=== PATIENT | female | born 1965 | race Caucasian/White ===

== ENCOUNTER 2022-12-17 14:18 | Inpatient (IN) ==
[2022-12-17] MEDS ORDERED: ONDANSETRON INJ 2 MG/ML 2 ML VIAL IV STA (14:37)
[2022-12-17] MEDS ORDERED: FAMOTIDINE 20MG IV PUSH 20 MG/5 ML SYR IV STA (14:37)
[2022-12-17] MEDS ORDERED: ACETAMINOPHEN 1,000 MG/100 ML VIAL IV STA (14:37)
[2022-12-17] MEDS ORDERED: SODIUM CHLORIDE 0.9% 1000ML 2,000 ML IV SCH (14:45)
--- NOTE | 2022-12-17 15:14 | XRay Report ---
XR chest 1V portable HISTORY: Atypical chest pain. Covid positive. COMPARISON: None. FINDINGS: The lungs are clear. Cardiac silhouette is normal in size. No pleural effusions. No pneumot horax. IMPRESSION: No acute process. ACT 112: Negative or not required by law. Electronically signed by: Kevan Terrell M.D. 12/17/2022 3:13 PM
--- NOTE | 2022-12-17 15:28 | Emergency Department Note ---
Impression & Plan COVID-19, Hyponatremia, Hypomagnesemia, Hypokalemia ED Provider Note NAME: ZEYNEP CHANG AGE: 57 SEX: F ARRIVES VIA: Walk-In INFORMANT: Patient ED PROVIDER(S): Percy Noguera MD CHIEF COMPLAINT: Dizziness, fatigue, body aches/burning PLAN: Disposition: Admit MEDICAL DECISION MAKING: The patient is a pleasant 57-year-old woman with a past medical history of h ypertension who presents to the emergency department via walk-in for evaluation of symptoms of generalized fatigue, lightheadedness, generalized body burning sensation, nausea that developed last night and worsened this morning. The patient denies chest pain or shortness of breath. She denies any urinary symptoms. Denies any diarrhea. She reports she does have sick contact with her being diagnosed with COVID-19 in the past week and then admits that she did take a home test this morning for COVID-19 that was positive. She reports she is vaccinated for COVID-19 and has never had COVID-19 in the past. She denies any cough or congestion. On arrival the patient is anxious appearing but no acute distress, afebrile with heart in the 90s and blood pressure 160s/90s in the setting of her discomfort. She appears clinically dry. She has no focal logic deficits. Abdomen is benign. EKG without overt acute ischemia. CXR negative for acute cardiopulmonary process. WBC, Hbg, and platelets within normal limits. Chemistry without metabolic acidosis. Sodium 115, potassium 2.9 and magnesium 1.5 with electrolyte repletion initiated. LFTs unremarkable. HS Troponin wnl. CPK 222, marginally above normal nonspecific. UA without convincing evidence of infection. Patient's COVID-19 PCR was positive. Serum and urine osmolality completed with serum osmolality concentrated and urine osmolality dilated and so likely multifactorial including component of patient's recent report of GI illness with nausea, vomiting, diarrhea last week with poor oral intake and admittedly drinking mostly water to hydrate and in the setting of being on combination lisinopril HCTZ. Patient initially treated with 2 L normal saline given her clinically dry appearance with repeat sodium improving to 121. Given the patient's hyponatremia she agrees with plan for admission. Unclear if patient's COVID-19 PCR reflects acute illness at this time versus her GI illness last week. Case was d/w Dr. New, [facility] hospitalist who will evaluate the patient for admission. Triage Nursing notes reviewed and agree them. Prior/outside medical records reviewed Vital Signs: reviewed Differential diagnosis: Infection, dehydration, metabolic abnormality, hypo/hyperglycemia, electrolyte disturbance, anemia, hypoxia, cardiac sources, intracerebral event, toxicologic, neurologic, as well as other pathologies. ER treatment provided: See below. Diagnostics interpreted by me: ECG: Sinus rhythm first-degree block, 84 bpm, no ectopy, no overt ST ovation dep ression, QTc 451, cures 94. Cardiac Monitoring: An order for continuous cardiac monitoring was placed and demonstrated Sinus rhythm first-degree block, 84 bpm, no ectopy. Laboratory studies: See below Imaging studies: See below Consultation(s): Case was d/w Dr. New [facility] hospitalist who will evaluate the patient for admission. HPI: The patient is a pleasant 57-year-old woman with a past medical history of hypertension who presents emergency department via walk-in for evaluation of symptoms of generalized fatigue, lightheadedness, generalized body burning sensation, nausea that developed last night and worsened this morning. The patient denies chest pain or shortness of breath. She denies any urinary symptoms. Denies any diarrhea. She reports she does have sick contact with her being diagnosed with COVID-19 in the past week and then admits that she did take a home test this morning for COVID-19 that was positive. She reports she is vaccinated for COVID-19 and has never had COVID-19 in the past. She denies any cough or congestion. ROS: See above HPI for pertinent positives & negatives. A total of 10 systems reviewed and were otherwise negative. VITALS:See Below PHYSICAL EXAMINATION: GENERAL: Awake, alert, fatigued-appearing, in no distress HENT: Normocephalic, atraumatic. Oropharynx with dry mucous membranes and otherwise unremarkable. EYES: Normal conjunctiva. Sclera non-icteric. NECK: Supple. No nuchal rigidity. FROM. No JVD. RESPIRATORY: Clear to auscultation. CARDIAC: Regular rate, normal rhythm. Extremities warm and well perfused. Pulses equal. ABDOMEN: Soft, non-distended. No tenderness to palpation. No rebound or guarding. No masses. RECTAL: Deferred. MUSCULOSKELETAL: Chest examination reveals no tenderness. The back is symmetrical on inspection without obvious abnormality. There is no CVA tenderness to palpation. No joint edema. LOWER EXTREMITIES: Calves are equal size bilaterally and non-tender. No edema. No discoloration. NEURO: Normal sensorium. No sensory or motor deficits noted. SKIN: No rash or jaundice noted. ED COURSE: Critical Care: I have personally spent greater than 35 minutes of critical care time in the direct management of this patient. This includes bedside care, interpretation of diagnostic studies, and testing, discussion with consultants, patient, and family members, and other required patient management activities. This 35 minutes is in excess of all separately billable procedures. Percy Noguera MD Past Med/Surg History Medical History Hypertension Surgical History No significant past surgical history Social History Smoking Status: Never smoker Second Hand Exposure: No; Do You Dip or Chew Tobacco: No; Tobacco Cessation Education Requested by Patient: No Hx Alcohol Use: No Hx Substance Use: No Communication Ability: Effective Coremaker Bench Required: No Beliefs That Will Affect Care: None Current Living Situation: Spouse Other Information That Helps Us Care for You: No Feels Safe at Home: Yes Safety Concerns: Feels Safe At This Time Assistive Devices: None Allergies Allergies Allergy/AdvReac Type Severity Reaction Status Date / Time No Known Allergies Allergy Unverified 12/17/22 15:56 Home Meds Home Medications Medication Instructions Recorded Confirmed aspirin 81 mg tablet,delayed 81 mg PO DAILY 12/17/22 12/17/22 release eflornithine 13.9 % topical cream See Rx Instructions .Route .COMPLEX 12/17/22 12/17/22 (Vaniqa) lisinopril 20 1 tab PO DAILY 12/17/22 12/17/22 mg-hydrochlorothiazide 12.5 mg tablet multivitamin 1 tab PO DAILY 12/17/22 12/17/22 Results & Data (ED) Vital Signs Vital Signs - 24 hr 12/17/22 14:22 12/17/22 15:17 12/17/22 15:23 Temperature 36.5 C Temperature Source Temporal Artery Scan Pulse Rate 92 H 88 86 Pulse Rate [Right Finger] Pulse Rate from SpO2 Sensor Pulse Rhythm [Right Finger] Pulse Strength [Right Finger] Respiratory Rate 16 20 Respiratory Effort / Characteristics Non-Labored Respiratory Depth Normal Respiratory Pattern Blood Pressure 166/95 H Blood Pressure [Right Arm] Blood Pressure Mean 118 Blood Pressure Mean [Right Arm] Blood Pressure Position [Right Arm] Pulse Oximetry 99 96 Oxygen Delivery Method Room Air Room Air Sepsis Recent Fever Within 48 Hours No Sepsis New/Unexplained Change in Mental Status No Sepsis Action Taken by Nursing No Action Required 12/17/22 15:20 12/17/22 15:20 12/17/22 15:30 Temperature Temperature Source Pulse Rate 89 Pulse Rate [Right Finger] 87 Pulse Rate from SpO2 Sensor 88 Pulse Rhythm [Right Finger] Regular Pulse Strength [Right Finger] Normal Respiratory Rate 22 18 Respiratory Effort / Characteristics Non-Labored Spontaneous Respiratory Depth Normal Respiratory Pattern Regular Blood Pressure 127/87 Blood Pressure [Right Arm] 127/87 Blood Pressure Mean 100 Blood Pressure Mean [Right Arm] 100 Blood Pressure Position [Right Arm] Lying Pulse Oximetry 99 98 Oxygen Delivery Method Room Air Sepsis Recent Fever Within 48 Hours Sepsis New/Unexplained Change in Mental Status Sepsis Action Taken by Nursing 12/17/22 15:30 12/17/22 15:40 12/17/22 15:50 Temperature Temperature Source Pulse Rate 89 83 79 Pulse Rate [Right Finger] Pulse Rate from SpO2 Sensor 88 83 78 Pulse Rhythm [Right Finger] Pulse Strength [Right Finger] Respiratory Rate 23 19 14 Respiratory Effort / Characteristics Respiratory Depth Respiratory Pattern Blood Pressure Blood Pressure [Right Arm] Blood Pressure Mean Blood Pressure Mean [Right Arm] Blood Pressure Position [Right Arm] Pulse Oximetry 99 98 96 Oxygen Delivery Method Sepsis Recent Fever Within 48 Hours Sepsis New/Unexplained Change in Mental Status Sepsis Action Taken by Nursing 12/17/22 16:00 12/17/22 16:00 12/17/22 16:10 Temperature Temperature Source Pulse Rate 77 76 Pulse Rate [Right Finger] Pulse Rate from SpO2 Sensor 78 77 Pulse Rhythm [Right Finger] Pulse Strength [Right Finger] Respiratory Rate 14 17 Respiratory Effort / Characteristics Respiratory Depth Respiratory Pattern Blood Pressure 129/87 Blood Pressure [Right Arm] Blood Pressure Mean 101 Blood Pressure Mean [Right Arm] Blood Pressure Position [Right Arm] Pulse Oximetry 97 98 Oxygen Delivery Method Sepsis Recent Fever Within 48 Hours Sepsis New/Unexplained Change in Mental Status Sepsis Action Taken by Nursing 12/17/22 16:20 12/17/22 16:30 12/17/22 16:30 Temperature Temperature Source Pulse Rate 77 82 Pulse Rate [Right Finger] Pulse Rate from SpO2 Sensor 77 82 Pulse Rhythm [Right Finger] Pulse Strength [Right Finger] Respiratory Rate 14 15 Respiratory Effort / Characteristics Respiratory Depth Respiratory Pattern Blood Pressure 141/91 H Blood Pressure [Right Arm] Blood Pressure Mean 107 Blood Pressure Mean [Right Arm] Blood Pressure Position [Right Arm] Pulse Oximetry 98 99 Oxygen Delivery Method Sepsis Recent Fever Within 48 Hours Sepsis New/Unexplained Change in Mental Status Sepsis Action Taken by Nursing 12/17/22 16:40 12/17/22 16:50 12/17/22 17:00 Temperature Temperature Source Pulse Rate 89 90 Pulse Rate [Right Finger] Pulse Rate from SpO2 Sensor 90 90 Pulse Rhythm [Right Finger] Pulse Strength [Right Finger] Respiratory Rate 21 21 Respiratory Effort / Characteristics Respiratory Depth Respiratory Pattern Blood Pressure 135/82 Blood Pressure [Right Arm] Blood Pressure Mean 99 Blood Pressure Mean [Right Arm] Blood Pressure Position [Right Arm] Pulse Oximetry 99 100 Oxygen Delivery Method Sepsis Recent Fever Within 48 Hours Sepsis New/Unexplained Change in Mental Status Sepsis Action Taken by Nursing 12/17/22 17:00 12/17/22 17:10 12/17/22 17:20 Temperature Temperature Source Pulse Rate 95 H 98 H 108 H Pulse Rate [Right Finger] Pulse Rate from SpO2 Sensor 93 H 99 H 108 H Pulse Rhythm [Right Finger] Pulse Strength [Right Finger] Respiratory Rate 16 20 22 Respiratory Effort / Characteristics Respiratory Depth Respiratory Pattern Blood Pressure Blood Pressure [Right Arm] Blood Pressure Mean Blood Pressure Mean [Right Arm] Blood Pressure Position [Right Arm] Pulse Oximetry 100 99 98 Oxygen Delivery Method Sepsis Recent Fever Within 48 Hours Sepsis New/Unexplained Change in Mental Status Sepsis Action Taken by Nursing 12/17/22 17:30 12/17/22 17:30 12/17/22 17:40 Temperature Temperature Source Pulse Rate 97 H 99 H Pulse Rate [Right Finger] Pulse Rate from SpO2 Sensor 97 H 99 H Pulse Rhythm [Right Finger] Pulse Strength [Right Finger] Respiratory Rate 18 19 Respiratory Effort / Characteristics Respiratory Depth Respiratory Pattern Blood Pressure 137/85 Blood Pressure [Right Arm] Blood Pressure Mean 102 Blood Pressure Mean [Right Arm] Blood Pressure Position [Right Arm] Pulse Oximetry 97 98 Oxygen Delivery Method Sepsis Recent Fever Within 48 Hours Sepsis New/Unexplained Change in Mental Status Sepsis Action Taken by Nursing 12/17/22 17:53 12/17/22 17:53 12/17/22 18:00 Temperature Temperature Source Pulse Rate 104 H Pulse Rate [Right Finger] Pulse Rate from SpO2 Sensor 98 H Pulse Rhythm [Right Finger] Pulse Strength [Right Finger] Respiratory Rate 19 Respiratory Effort / Characteristics Respiratory Depth Respiratory Pattern Blood Pressure 139/90 125/53 L Blood Pressure [Right Arm] Blood Pressure Mean 106 77 Blood Pressure Mean [Right Arm] Blood Pressure Position [Right Arm] Pulse Oximetry 98 Oxygen Delivery Method Sepsis Recent Fever Within 48 Hours Sepsis New/Unexplained Change in Mental Status Sepsis Action Taken by Nursing 12/17/22 18:00 12/17/22 18:10 12/17/22 18:20 Temperature Temperature Source Pulse Rate 96 H 96 H 95 H Pulse Rate [Right Finger] Pulse Rate from SpO2 Sensor 96 H 97 H 95 H Pulse Rhythm [Right Finger] Pulse Strength [Right Finger] Respiratory Rate 17 21 14 Respiratory Effort / Characteristics Respiratory Depth Respiratory Pattern Blood Pressure Blood Pressure [Right Arm] Blood Pressure Mean Blood Pressure Mean [Right Arm] Blood Pressure Position [Right Arm] Pulse Oximetry 99 98 98 Oxygen Delivery Method Sepsis Recent Fever Within 48 Hours Sepsis New/Unexplained Change in Mental Status Sepsis Action Taken by Nursing Laboratory Data Attestation: I reviewed the patient's lab results. 12/17/22 14:37 12/17/22 17:51 Lab Results 12/17/22 12/17/22 12/17/22 Range/Units 14:37 14:37 14:37 WBC 5.20 (4.8-10.8) K/ul RBC 4.55 (4.20-5.40) M/uL Hgb 13.0 (12.0-16.0) g/dl Hct 35.0 L (37.0-47.0) % MCV 76.9 L (80.0-100.0) fL MCH 28.6 (25.0-34.0) pg MCHC 37.1 H (32.0-36.0) g/dL RDW Std Deviation 33.6 L (36.4-46.3) fL RDW Coeff of Marlena 11.7 (11.5-14.5) % Plt Count 370 (130-400) K/uL MPV 8.7 L (9.4-12.4) fL Immature Gran % (Auto) 1.0 % Neut % (Auto) 72.0 % Lymph % (Auto) 18.3 % [place] % (Auto) 8.7 % Eos % (Auto) 0.0 % Baso % (Auto) 0.0 % Neut # (Auto) 3.75 (1.40-6.50) K/uL Lymph # (Auto) 0.95 L (1.2-3.4) K/uL [place] # (Auto) 0.45 (0.11-0.59) K/uL Eos # (Auto) 0.00 (0-0.50) K/uL Baso # (Auto) 0.00 (0-0.2) K/uL Immature Gran # (Auto) 0.05 (0.01-0.20) K/uL RBC Morphology Unremarkable Sodium 115 L* (136-145) mmol/L Potassium 2.9 L (3.5-5.1) mmol/L Chloride 77 L (98-107) mmol/L Carbon Dioxide 28 (21-32) mmol/L Anion Gap 10 (3-11) BUN 9 (6-23) mg/dl Creatinine 0.57 L (0.6-1.2) mg/dl Est Cr Clr Drug Dosing 93.8 ml/min Est GFR ( Amer) 120.1 ml/min Est GFR (Non-Af Amer) 103.6 ml/min BUN/Creatinine Ratio 15.8 (10-20) Glucose 137 H (70-99(Fasting)) mg/dl Osmolality 335 H (280-300) mOsm/kg Calcium 10.1 (8.6-10.3) mg/dl Magnesium 1.5 L (1.7-2.4) mg/dl Total Bilirubin 0.8 (0.2-1.0) mg/dl AST 29 (13-39) U/L ALT 35 (7-52) U/L Alkaline Phosphatase 80 (34-104) U/L Total Creatine Kinase 222 H (26-192) U/L Troponin I High Sens 4.7 (0-14) pg/ml Total Protein 7.5 (6.0-8.3) gm/dl Albumin 4.6 (3.4-5.0) gm/dl Globulin 2.9 (2.5-4.0) gm/dl Albumin/Globulin Ratio 1.6 (0.9-2) TSH (0.300-4.500) uIu/ml Random Cortisol mcg/dl Urine Color Urine Appearance (Clear) Urine pH (4.5-7.5) Ur Specific [place] (1.000-1.030) Urine Protein (Negative) Urine Glucose (UA) (Negative) Urine Ketones (Negative) Urine Blood (Negative) Urine Nitrite (Negative) Urine Bilirubin (Negative) Urine Urobilinogen (Negative) Ur Leukocyte Esterase (Negative) Urine WBC (Auto) (0-5) /hpf Urine RBC (Auto) (0-4) /hpf U Hyaline Cast (Auto) (0-5) /lpf U Epithel Cells (Auto) (0-5) /lpf Urine Bacteria (Auto) (Negative) Urine Osmolality (500-800) mOsm/kg Ur Random Sodium mmol/L SARS-CoV-2 (PCR) (Negative) 12/17/22 12/17/22 12/17/22 Range/Units 15:15 15:15 15:15 WBC (4.8-10.8) K/ul RBC (4.20-5.40) M/uL Hgb (12.0-16.0) g/dl Hct (37.0-47.0) % MCV (80.0-100.0) fL MCH (25.0-34.0) pg MCHC (32.0-36.0) g/dL RDW Std Deviation (36.4-46.3) fL RDW Coeff of Marlena (11.5-14.5) % Plt Count (130-400) K/uL MPV (9.4-12.4) fL Immature Gran % (Auto) % Neut % (Auto) % Lymph % (Auto) % [place] % (Auto) % Eos % (Auto) % Baso % (Auto) % Neut # (Auto) (1.40-6.50) K/uL Lymph # (Auto) (1.2-3.4) K/uL [place] # (Auto) (0.11-0.59) K/uL Eos # (Auto) (0-0.50) K/uL Baso # (Auto) (0-0.2) K/uL Immature Gran # (Auto) (0.01-0.20) K/uL RBC Morphology Sodium (136-145) mmol/L Potassium (3.5-5.1) mmol/L Chloride (98-107) mmol/L Carbon Dioxide (21-32) mmol/L Anion Gap (3-11) BUN (6-23) mg/dl Creatinine (0.6-1.2) mg/dl Est Cr Clr Drug Dosing ml/min Est GFR ( Amer) ml/min Est GFR (Non-Af Amer) ml/min BUN/Creatinine Ratio (10-20) Glucose (70-99(Fasting)) mg/dl Osmolality (280-300) mOsm/kg Calcium (8.6-10.3) mg/dl Magnesium (1.7-2.4) mg/dl Total Bilirubin (0.2-1.0) mg/dl AST (13-39) U/L ALT (7-52) U/L Alkaline Phosphatase (34-104) U/L Total Creatine Kinase (26-192) U/L Troponin I High Sens (0-14) pg/ml Total Protein (6.0-8.3) gm/dl Albumin (3.4-5.0) gm/dl Globulin (2.5-4.0) gm/dl Albumin/Globulin Ratio (0.9-2) TSH (0.300-4.500) uIu/ml Random Cortisol mcg/dl Urine Color Yellow Urine Appearance Clear (Clear) Urine pH 7.5 (4.5-7.5) Ur Specific [place] 1.006 (1.000-1.030) Urine Protein Negative (Negative) Urine Glucose (UA) Negative (Negative) Urine Ketones 1+ H (Negative) Urine Blood 1+ H (Negative) Urine Nitrite Negative (Negative) Urine Bilirubin Negative (Negative) Urine Urobilinogen Negative (Negative) Ur Leukocyte Esterase Negative (Negative) Urine WBC (Auto) 1-5 (0-5) /hpf Urine RBC (Auto) 5-10 H (0-4) /hpf U Hyaline Cast (Auto) 0 (0-5) /lpf U Epithel Cells (Auto) 10-20 H (0-5) /lpf Urine Bacteria (Auto) Negative (Negative) Urine Osmolality 205 L (500-800) mOsm/kg Ur Random Sodium mmol/L SARS-CoV-2 (PCR) POSITIVE A* (Negative) 12/17/22 12/17/22 12/17/22 Range/Units 15:15 17:51 17:51 WBC (4.8-10.8) K/ul RBC (4.20-5.40) M/uL Hgb (12.0-16.0) g/dl Hct (37.0-47.0) % MCV (80.0-100.0) fL MCH (25.0-34.0) pg MCHC (32.0-36.0) g/dL RDW Std Deviation (36.4-46.3) fL RDW Coeff of Marlena (11.5-14.5) % Plt Count (130-400) K/uL MPV (9.4-12.4) fL Immature Gran % (Auto) % Neut % (Auto) % Lymph % (Auto) % [place] % (Auto) % Eos % (Auto) % Baso % (Auto) % Neut # (Auto) (1.40-6.50) K/uL Lymph # (Auto) (1.2-3.4) K/uL [place] # (Auto) (0.11-0.59) K/uL Eos # (Auto) (0-0.50) K/uL Baso # (Auto) (0-0.2) K/uL Immature Gran # (Auto) (0.01-0.20) K/uL RBC Morphology Sodium 121 L (136-145) mmol/L Potassium 3.3 L (3.5-5.1) mmol/L Chloride 88 L (98-107) mmol/L Carbon Dioxide 25 (21-32) mmol/L Anion Gap 8 (3-11) BUN 7 (6-23) mg/dl Creatinine 0.57 L (0.6-1.2) mg/dl Est Cr Clr Drug Dosing 93.8 ml/min Est GFR ( Amer) 120.1 ml/min Est GFR (Non-Af Amer) 103.6 ml/min BUN/Creatinine Ratio 12.3 (10-20) Glucose 127 H (70-99(Fasting)) mg/dl Osmolality (280-300) mOsm/kg Calcium 9.1 (8.6-10.3) mg/dl Magnesium (1.7-2.4) mg/dl Total Bilirubin (0.2-1.0) mg/dl AST (13-39) U/L ALT (7-52) U/L Alkaline Phosphatase (34-104) U/L Total Creatine Kinase (26-192) U/L Troponin I High Sens (0-14) pg/ml Total Protein (6.0-8.3) gm/dl Albumin (3.4-5.0) gm/dl Globulin (2.5-4.0) gm/dl Albumin/Globulin Ratio (0.9-2) TSH 1.033 (0.300-4.500) uIu/ml Random Cortisol mcg/dl Urine Color Urine Appearance (Clear) Urine pH (4.5-7.5) Ur Specific [place] (1.000-1.030) Urine Protein (Negative) Urine Glucose (UA) (Negative) Urine Ketones (Negative) Urine Blood (Negative) Urine Nitrite (Negative) Urine Bilirubin (Negative) Urine Urobilinogen (Negative) Ur Leukocyte Esterase (Negative) Urine WBC (Auto) (0-5) /hpf Urine RBC (Auto) (0-4) /hpf U Hyaline Cast (Auto) (0-5) /lpf U Epithel Cells (Auto) (0-5) /lpf Urine Bacteria (Auto) (Negative) Urine Osmolality (500-800) mOsm/kg Ur Random Sodium 47 mmol/L SARS-CoV-2 (PCR) (Negative) 12/17/22 Range/Units 17:51 WBC (4.8-10.8) K/ul RBC (4.20-5.40) M/uL Hgb (12.0-16.0) g/dl Hct (37.0-47.0) % MCV (80.0-100.0) fL MCH (25.0-34.0) pg MCHC (32.0-36.0) g/dL RDW Std Deviation (36.4-46.3) fL RDW Coeff of Marlena (11.5-14.5) % Plt Count (130-400) K/uL MPV (9.4-12.4) fL Immature Gran % (Auto) % Neut % (Auto) % Lymph % (Auto) % [place] % (Auto) % Eos % (Auto) % Baso % (Auto) % Neut # (Auto) (1.40-6.50) K/uL Lymph # (Auto) (1.2-3.4) K/uL [place] # (Auto) (0.11-0.59) K/uL Eos # (Auto) (0-0.50) K/uL Baso # (Auto) (0-0.2) K/uL Immature Gran # (Auto) (0.01-0.20) K/uL RBC Morphology Sodium (136-145) mmol/L Potassium (3.5-5.1) mmol/L Chloride (98-107) mmol/L Carbon Dioxide (21-32) mmol/L Anion Gap (3-11) BUN (6-23) mg/dl Creatinine (0.6-1.2) mg/dl Est Cr Clr Drug Dosing ml/min Est GFR ( Amer) ml/min Est GFR (Non-Af Amer) ml/min BUN/Creatinine Ratio (10-20) Glucose (70-99(Fasting)) mg/dl Osmolality (280-300) mOsm/kg Calcium (8.6-10.3) mg/dl Magnesium (1.7-2.4) mg/dl Total Bilirubin (0.2-1.0) mg/dl AST (13-39) U/L ALT (7-52) U/L Alkaline Phosphatase (34-104) U/L Total Creatine Kinase (26-192) U/L Troponin I High Sens (0-14) pg/ml Total Protein (6.0-8.3) gm/dl Albumin (3.4-5.0) gm/dl Globulin (2.5-4.0) gm/dl Albumin/Globulin Ratio (0.9-2) TSH (0.300-4.500) uIu/ml Random Cortisol 11.19 mcg/dl Urine Color Urine Appearance (Clear) Urine pH (4.5-7.5) Ur Specific [place] (1.000-1.030) Urine Protein (Negative) Urine Glucose (UA) (Negative) Urine Ketones (Negative) Urine Blood (Negative) Urine Nitrite (Negative) Urine Bilirubin (Negative) Urine Urobilinogen (Negative) Ur Leukocyte Esterase (Negative) Urine WBC (Auto) (0-5) /hpf Urine RBC (Auto) (0-4) /hpf U Hyaline Cast (Auto) (0-5) /lpf U Epithel Cells (Auto) (0-5) /lpf Urine Bacteria (Auto) (Negative) Urine Osmolality (500-800) mOsm/kg Ur Random Sodium mmol/L SARS-CoV-2 (PCR) (Negative) Administered Medications Dextrose (D5w) 1,000 mls @ 150 mls/hr IV .[id number] DEJUAN Stop: 12/18/22 07:54 Last Admin: 12/18/22 01:13 Dose: 150 mls/hr Documented By: ASM Discontinued Medications Sodium Chloride (Nss 1000ml) 2,000 mls @ 999 mls/hr IV .Q2H1M DEJUAN Stop: 12/17/22 16:45 Last Infusion: 12/17/22 17:45 Dose: 0 mls/hr Documented By: PRODUCTION OPERATIONS MANAGER Admin: 12/17/22 15:45 Dose: 999 mls/hr Documented By: PRODUCTION OPERATIONS MANAGER Acetaminophen (Ofirmev) 1,000 mg in 100 mls @ 400 mls/hr IV NOW STA Stop: 12/17/22 14:51 Last Infusion: 12/17/22 16:31 Dose: 0 mls/hr Documented By: PRODUCTION OPERATIONS MANAGER Admin: 12/17/22 15:55 Dose: 400 mls/hr Documented By: PRODUCTION OPERATIONS MANAGER Famotidine (Pepcid 20mg Iv Push) 20 mg in 5 mls @ 2.5 mls/min IV NOW STA Stop: 12/17/22 14:38 Last Admin: 12/17/22 15:50 Dose: 2.5 mls/min Documented By: PRODUCTION OPERATIONS MANAGER Magnesium Sulfate/Dextrose (Magnesium Sulfate / D5w) 1 gm in 100 mls @ 50 mls/hr IV ONE ONE Stop: 12/17/22 18:25 Last Infusion: 12/17/22 19:00 Dose: 0 mls/hr Documented By: PRODUCTION OPERATIONS MANAGER Admin: 12/17/22 16:58 Dose: 50 mls/hr Documented By: PRODUCTION OPERATIONS MANAGER Desmopressin Acetate 2 mcg/ (Sodium Chloride) 50.5 mls @ 100 mls/hr IV ONE STA Stop: 12/17/22 19:24 Last Infusion: 12/17/22 20:15 Dose: 0 mls/hr Documented By: PRODUCTION OPERATIONS MANAGER Admin: 12/17/22 19:42 Dose: 100 mls/hr Documented By: ARS Dextrose (D5w) 500 mls @ 500 mls/hr IV .Q1H DEJUAN Stop: 12/17/22 23:44 Last Infusion: 12/18/22 00:05 Dose: 0 mls/hr Documented By: Admin: 12/17/22 23:05 Dose: 500 mls/hr Documented By: AYESHA Dextrose (D5w) 500 mls @ 500 mls/hr IV .Q1H DEJUAN Stop: 12/18/22 01:14 Last Infusion: 12/18/22 01:12 Dose: 0 mls/hr Documented By: Admin: 12/17/22 23:56 Dose: 500 mls/hr Documented By: AYESHA Ondansetron HCl (Ondansetron Inj 2 Mg/Ml 2 Ml Vial) 4 mg IV NOW STA Stop: 12/17/22 14:38 Last Admin: 12/17/22 16:07 Dose: 4 mg Documented By: PRODUCTION OPERATIONS MANAGER Potassium Chloride (Potassium Chloride Crtab 20 Meq Tabcr) 40 meq PO NOW STA Stop: 12/17/22 23:09 Last Admin: 12/17/22 23:54 Dose: 40 meq Documented By: AYESHA Imaging Data Radiologist's Impression: Chest X-Ray 12/17/22 14:37 XR chest 1V portable HISTORY: Atypical chest pain. Covid positive. COMPARISON: None. FINDINGS: The lungs are clear. Cardiac silhouette is normal in size. No pleural effusions. No pneumothorax. IMPRESSION: No acute process. ACT 112: Negative or not required by law. Electronically signed by: Kevan Terrell M.D. 12/17/2022 3:13 PM Discharge Plan Visit Data Chief Complaint: Illness Stated Complaint: LIGHTHEADED, MUSCLE PAIN, DRY MOUTH ED Provider: Percy Noguera Discharge Problem: COVID-19, Hyponatremia, Hypomagnesemia, Hypokalemia Patient Disposition: Admitted As Inpatient Discharge Instructions Interventions: ED Discharge Assessment Last Done: 12/17/22 20:15
[2022-12-17 15:44] LABS: Appearance Urine Clear (Clear); Bacteria Urine Automated Negative (Negative); Bilirubin Urine Negative (Negative); Blood Urine 1+ (Negative); Cast Urine Automated 0 /lpf (0-5); Color Urine Yellow; Glucose Urine UA Negative (Negative); Ketones Urine 1+ (Negative); Leukocyte Esterase Urine Negative (Negative); Nitrite Urine Negative (Negative); Protein Urine Negative (Negative); Specific Gravity Urine 1.006 (1.000-1.030); Urobilinogen Urine Negative (Negative); pH Urine 7.5 (4.5-7.5)
[2022-12-17 16:16] LABS: Albumin Globulin Ratio 1.6 (0.9-2); Albumin Level 4.6 gm/dl (3.4-5.0); BUN Creatinine Ratio 15.8 (10-20); Bilirubin,Total 0.8 mg/dl (0.2-1.0); Calcium 10.1 mg/dl (8.6-10.3); Creatinine Clr Calc Pharmacy 93.8 ml/min; Est GFR (African American) 120.1 ml/min; Est GFR (Non-African American) 103.6 ml/min; Globulin 2.9 gm/dl (2.5-4.0); Magnesium 1.5 mg/dl (1.7-2.4); Potassium 2.9 mmol/L (3.5-5.1); Total Protein 7.5 gm/dl (6.0-8.3); Troponin I High Sensitivity 4.7 pg/ml (0-14)
[2022-12-17] MEDS ORDERED: MAGNESIUM SULFATE / D5W 1 GM/100 ML BAG IV ONE (16:26)
[2022-12-17 16:35] LABS: Mean Corpuscular Hemoglobin 28.6 pg (25.0-34.0); Mean Corpuscular Hgb Conc 37.1 g/dL (32.0-36.0); Mean Corpuscular Volume 76.9 fL (80.0-100.0); Mean Platelet Volume 8.7 fL (9.4-12.4); Platelet Count 370 K/uL (130-400); RDW Coefficient of Variation 11.7 % (11.5-14.5); RDW Standard Deviation 33.6 fL (36.4-46.3); Red Blood Count 4.55 M/uL (4.20-5.40)
[2022-12-17 16:36] LABS: Immature Granulocytes # (auto) 0.05 K/uL (0.01-0.20); Lymphocytes # (auto) 0.95 K/uL (1.2-3.4); Lymphocytes % (auto) 18.3 %; Monocytes # (auto) 0.45 K/uL (0.11-0.59); Monocytes % (auto) 8.7 %; Neutrophils # (auto) 3.75 K/uL (1.40-6.50); RBC Morphology Unremarkable
--- NOTE | 2022-12-17 17:31 | History & Physical Report ---
Date of Service December 17, 2022 Assessment & Plan (1) Hyponatremia: Plan: Suspect multifactorial with increased free water use, HCTZ use, possible SIADH ?2/2 COVID Na 115 on admission, currently 121 s/p 2L NSS bolus given in ER with excessive urine output, will start desmopressin clamp 2mcg IV q8h to avoid over- correction, remove once Na > 125 reached with appropriate rate Use D5W or 3% NSS to continue to aim Na increase 6 mmol/L / 24 hours Fluid restrict 1000ml (2) Hypokalemia: Plan: K 2.9 -> 3.3 after Mg sulfate. Will avoid further KCl currently to avoid further correction to Na (3) Hypomagnesemia: Plan: Mg level 1.5, Magnesium sulfate 1g IV given (4) Hypertension: Plan: Hold lisinopril/HCTZ (5) COVID: Plan: Asymptomatic although maybe contributing towards hyponatremia as above COVID isolation precautions Plan VTE Prophylaxis - low risk Diet - regular, free water restrict 1000ml Disposition - admit to PCU History of Present Illness Chief Complaint: Generalized fatigue Primary Care Provider: Orville Dooley MD Rose Bhat is a 57 year old female with hypertension who presents to the ER with generalized fatigue, lightheadedness and myalgias. She reports having a nausea, vomiting illness approximately 1 week ago. She recovered from this but has been drinking more water to keep well hydrated. She reports he had nasal congestion and cough on Monday and tested positive for COVID. Today she woke up lightheaded, fatigue and generalized malaise and just not feeling right around 3am this morning. She took a COVID test which was positive but felt something else must be going on so came to the ER for further evaluation. No fever, chills, respiraotry, gastrointestinal or urinary symptoms. In the ER Na level 115 mmol/L. She was given 2L NSS bolus and referred to medicine for admission and ongoing management of hyponatremia. Allergies Allergy/AdvReac Type Severity Reaction Status Date / Time No Known Allergies Allergy Unverified 12/17/22 15:56 Home Medications Medication Instructions Recorded Confirmed Type aspirin 81 mg tablet,delayed 81 mg PO DAILY 12/17/22 12/17/22 History release eflornithine 13.9 % topical cream See Rx Instructions .Route .COMPLEX 12/17/22 12/17/22 History (Vaniqa) lisinopril 20 1 tab PO DAILY 12/17/22 12/17/22 History mg-hydrochlorothiazide 12.5 mg tablet multivitamin 1 tab PO DAILY 12/17/22 12/17/22 History Past Med/Surg History Medical History Hypertension Surgical History No significant past surgical history Social History Smoking Status: Never smoker Second Hand Exposure: No; Do You Dip or Chew Tobacco: No; Tobacco Cessation Education Requested by Patient: No Hx Alcohol Use: No Hx Substance Use: No Communication Ability: Effective Bunch Trimmer Mold Required: No Beliefs That Will Affect Care: None Current Living Situation: Spouse Other Information That Helps Us Care for You: No Feels Safe at Home: Yes Safety Concerns: Feels Safe At This Time Assistive Devices: None Review of Systems Review of Systems: All systems reviewed & are unremarkable except as noted in HPI & below Physical Exam Constitutional: WD/WN, vitals as above Eyes: PERRL, conjunctivae normal, anicteric sclerae ENMT: external ear and nose normal, oropharynx normal Neck: trachea midline, no thyromegaly Respiratory: normal respiratory effort, lungs clear to auscultation Cardiovascular: RRR, no murmur, no edema Gastrointestinal (Abdomen): normal bowel sounds, soft, nontender, no hepatosplenomegaly Musculoskeletal: no cyanosis or clubbing, extremities motor strength 5/5 Skin: no rashes, warm and dry Neurologic: deep tendon reflexes 2+ bilaterally (knee), moves all extremities and awake; no focal motor deficits and not confused Speech / Cognition: normal speech Coordination: normal [id number] test Psychiatric: A+Ox3, euthymic affect Genitourinary: no CVA tenderness Results & Data Results & Data Vital Signs (Past 12 Hours) Vital Signs Temp Pulse Pulse Resp BP BP Pulse Ox 12/17/22 16:30 82 15 99 12/17/22 16:30 141/91 H 12/17/22 16:20 77 14 98 12/17/22 16:10 76 17 98 12/17/22 16:00 77 14 97 12/17/22 16:00 129/87 12/17/22 15:50 79 14 96 12/17/22 15:40 83 19 98 12/17/22 15:30 89 23 99 12/17/22 15:30 127/87 12/17/22 15:20 89 18 98 12/17/22 15:20 87 22 127/87 99 12/17/22 15:23 86 12/17/22 15:17 88 20 96 12/17/22 14:22 36.5 C 92 H 16 166/95 H 99 O2 Del Method 12/17/22 16:30 12/17/22 16:30 12/17/22 16:20 12/17/22 16:10 12/17/22 16:00 12/17/22 16:00 12/17/22 15:50 12/17/22 15:40 12/17/22 15:30 12/17/22 15:30 12/17/22 15:20 12/17/22 15:20 Room Air 12/17/22 15:23 12/17/22 15:17 Room Air 12/17/22 14:22 Room Air Laboratory Results Abnormal lab results 12/17/22 12/17/22 12/17/22 Range/Units 14:37 14:37 14:37 Hct 35.0 L (37.0-47.0) % MCV 76.9 L (80.0-100.0) fL MCHC 37.1 H (32.0-36.0) g/dL RDW Std Deviation 33.6 L (36.4-46.3) fL MPV 8.7 L (9.4-12.4) fL Lymph # (Auto) 0.95 L (1.2-3.4) K/uL Sodium 115 L* (136-145) mmol/L Potassium 2.9 L (3.5-5.1) mmol/L Chloride 77 L (98-107) mmol/L Creatinine 0.57 L (0.6-1.2) mg/dl Glucose 137 H (70-99(Fasting)) mg/dl Osmolality 335 H (280-300) mOsm/kg Magnesium 1.5 L (1.7-2.4) mg/dl Total Creatine Kinase 222 H (26-192) U/L Urine Ketones (Negative) Urine Blood (Negative) Urine RBC (Auto) (0-4) /hpf U Epithel Cells (Auto) (0-5) /lpf Urine Osmolality (500-800) mOsm/kg SARS-CoV-2 (PCR) (Negative) 12/17/22 12/17/22 12/17/22 Range/Units 15:15 15:15 15:15 Hct (37.0-47.0) % MCV (80.0-100.0) fL MCHC (32.0-36.0) g/dL RDW Std Deviation (36.4-46.3) fL MPV (9.4-12.4) fL Lymph # (Auto) (1.2-3.4) K/uL Sodium (136-145) mmol/L Potassium (3.5-5.1) mmol/L Chloride (98-107) mmol/L Creatinine (0.6-1.2) mg/dl Glucose (70-99(Fasting)) mg/dl Osmolality (280-300) mOsm/kg Magnesium (1.7-2.4) mg/dl Total Creatine Kinase (26-192) U/L Urine Ketones 1+ H (Negative) Urine Blood 1+ H (Negative) Urine RBC (Auto) 5-10 H (0-4) /hpf U Epithel Cells (Auto) 10-20 H (0-5) /lpf Urine Osmolality 205 L (500-800) mOsm/kg SARS-CoV-2 (PCR) POSITIVE A* (Negative) 12/17/22 Range/Units 17:51 Hct (37.0-47.0) % MCV (80.0-100.0) fL MCHC (32.0-36.0) g/dL RDW Std Deviation (36.4-46.3) fL MPV (9.4-12.4) fL Lymph # (Auto) (1.2-3.4) K/uL Sodium 121 L (136-145) mmol/L Potassium 3.3 L (3.5-5.1) mmol/L Chloride 88 L (98-107) mmol/L Creatinine 0.57 L (0.6-1.2) mg/dl Glucose 127 H (70-99(Fasting)) mg/dl Osmolality (280-300) mOsm/kg Magnesium (1.7-2.4) mg/dl Total Creatine Kinase (26-192) U/L Urine Ketones (Negative) Urine Blood (Negative) Urine RBC (Auto) (0-4) /hpf U Epithel Cells (Auto) (0-5) /lpf Urine Osmolality (500-800) mOsm/kg SARS-CoV-2 (PCR) (Negative) Diagnostic Findings XR chest 1V portable HISTORY: Atypical chest pain. Covid positive. COMPARISON: None. FINDINGS: The lungs are clear. Cardiac silhouette is normal in size. No pleural effusions. No pneumothorax. IMPRESSION: No acute process. Medications Administered ER Medications Given: NSS 2L bolus Acetaminophen 1000mg IV Famotidine 20mg IV Ondansetron 4mg IV Magnesium sulfate 1g IV ECG Rate (beats per minute): 84 Rhythm: normal sinus Findings: + 1st degree AV block Comparison ECG Date: no prior available Code Status & VTE Plan Code Status Full VTE Prophylaxis Plan VTE Prophylaxis will be ordered: No Critical Care Time Critical Care Time: Yes (35) PG Care Time/CCT Total # of Minutes Spent Total Time Spent with Patient: Total time spent is greater than 50% in coordination of care (as documented) at patient's floor/unit and/or counseling patient: Critical Care Time: Yes (35) Coding Level of Care Code 97359 INT INP/OBS CARE 3/75MIN Diagnoses Hyponatremia E87.1 Hypokalemia E87.6 Hypomagnesemia E83.42 Hypertension I10 COVID U07.1 Additional Codes Critical Care Time - Critical Care Time: Yes ([id number])
[2022-12-17 18:18] LABS: BUN Creatinine Ratio 12.3 (10-20); Calcium 9.1 mg/dl (8.6-10.3); Creatinine Clr Calc Pharmacy 93.8 ml/min; Est GFR (African American) 120.1 ml/min; Est GFR (Non-African American) 103.6 ml/min; Potassium 3.3 mmol/L (3.5-5.1)
[2022-12-17] MEDS ORDERED: DESMOPRESSIN ACETATE 2 MCG in SODIUM CHLORIDE 0.9% 50 ML IV STA (18:54)
[2022-12-17 21:33] LABS: BUN Creatinine Ratio 9.4 (10-20); Calcium 9.2 mg/dl (8.6-10.3); Creatinine Clr Calc Pharmacy 82.8 ml/min; Est GFR (African American) 115.6 ml/min; Est GFR (Non-African American) 99.8 ml/min
[2022-12-17] MEDS ORDERED: DEXTROSE 5% 500 ML IV SCH (22:45)
[2022-12-17] MEDS ORDERED: DEXTROSE 5% 1,000 ML IV SCH (23:00)
[2022-12-17] MEDS ORDERED: POTASSIUM CHLORIDE CRTAB 20 MEQ TABCR PO STA (23:08)
[2022-12-18] MEDS ORDERED: DEXTROSE 5% 500 ML IV SCH (00:15)
[2022-12-18 00:52] LABS: Calcium 8.2 mg/dl (8.6-10.3); Creatinine Clr Calc Pharmacy 75.7 ml/min; Est GFR (African American) 112.3 ml/min; Est GFR (Non-African American) 96.9 ml/min; Potassium 3.1 mmol/L (3.5-5.1)
[2022-12-18] MEDS ORDERED: DEXTROSE 5% 1,000 ML IV SCH (01:15)
[2022-12-18] MEDS ORDERED: DESMOPRESSIN ACETATE 2 MCG in SODIUM CHLORIDE 0.9% 50 ML IV SCH (04:00)
[2022-12-18] MEDS: ACETAMINOPHEN 325 MG TAB PO PRN (04:05)
[2022-12-18 06:31] LABS: BUN Creatinine Ratio 10.9 (10-20); Calcium 7.9 mg/dl (8.6-10.3); Creatinine Clr Calc Pharmacy 97.4 ml/min; Est GFR (African American) 121.5 ml/min; Est GFR (Non-African American) 104.9 ml/min; Magnesium 1.6 mg/dl (1.7-2.4); Potassium 3.1 mmol/L (3.5-5.1)
[2022-12-18 06:46] LABS: Hemoglobin 11.5 g/dl (12.0-16.0); Mean Corpuscular Hemoglobin 30.3 pg (25.0-34.0); Mean Corpuscular Hgb Conc 38.3 g/dL (32.0-36.0); Mean Corpuscular Volume 78.9 fL (80.0-100.0); Mean Platelet Volume 8.8 fL (9.4-12.4); Platelet Count 345 K/uL (130-400); RDW Coefficient of Variation 11.9 % (11.5-14.5); RDW Standard Deviation 34.2 fL (36.4-46.3)
--- NOTE | 2022-12-18 06:47 | Communication Note ---
Date of Service: December 17, 2022 Na increased to 126 after desmopressin clamp started. Aim Na 118 at this time. Free water deficit 1L. 1L D5W ordered to be given over 2 hours. Repeat Na 1am. Handed over to wardrobe stylist to prescribe D5W (per free water deficit calculations if over correcting or hypertonic saline if under correcting to match rate of 6 mmol/l/24 hours overnight.
[2022-12-18 07:06] LABS: Neutrophils % (manual) 55 %
[2022-12-18 07:10] LABS: ALC (manual) 1.76 K/uL (1.2-3.4); ANC (manual) 2.37 K/uL (1.4-6.5); Lymphocytes # (manual) 1.76 K/uL (1.2-3.4); Lymphocytes % (manual) 41 %; Monocytes # (manual) 0.13 K/uL (0.11-0.59); Monocytes % (manual) 3 %; Neutrophils # (manual) 2.36 K/uL (1.40-6.50)
--- NOTE | 2022-12-18 07:29 | Hospitalist Progress Note ---
Date of Service December 18, 2022 Assessment & Plan (1) Hyponatremia: Plan: Rose Bhat is a 57yo female with PMHx significant for HTN who was admitted to [facility] on 12/17 for hyponatremia and was also found to have COVID-19 - contracted a wk ago. Hyponatremia Hypotonic hyponatremia (initial serum osmolality 335 but down to 246 on re-check this morning), with urine sodium 47 and low urine osmolality of 220. Most likely hypovolemic hyponatremia due to dehydration in context of recent GI illness as well as chronically low fluid intake while on HCTZ. Of note, chronic baseline sodium is unknown although patient reports no previous diagnosis of hyponatremia. - Na initially increased from 115 to 126 after 2L NSS boluses, and patient was thus started on Q8H Desmopressin as well as D5W x1L to correct free water deficit - Na has decreased from 126 to 118 after 1 dose Desmopressin and completion of D5W infusion - overall up 3 mEq in last 18 hours - Will give NSS 500cc bolus now, and will stop Desmopressin - Continue to monitor BMP Q4H Nausea Likely due to hyponatremia, mildly symptomatic at this time. - PRN Zofran ordered Hypokalemia;Hypomagnesemia Likely due to HCTZ in setting of recent GI illness. Replete and trend. HTN Very mildly hypertensive at 145/95 this AM. - Holding HCTZ. Resume lisinopril COVID-19 Positive on admission, but asymptomatic. Contracted a wk ago. May be contributing to hyponatremia. - isolation precautions FEN/GI: regular diet (removed fluid restriction) DVT Prophylaxis: Lovenox Code Status: full code Disposition: PCU (2) Hypokalemia: (3) Hypomagnesemia: (4) Hypertension: (5) COVID: Admission and Anticipated Discharge Date Admission Date: December 17, 2022 Supervising Physician Co-Signing Physician Notes Resident Physician Supervision Note: I independently interviewed and examined the patient and verified the anderson history and physical, reviewed labs and image studies and agree with resident findings and care plan. Subjective Patient reports that she had nausea/vomiting and diarrhea x2 days, starting ~1 week ago and then completely resolving. Then 1 day prior to admission she woke up with upper/lower extremity myalgia, fatigue/weakness and lightheadedness - "didn't feel right". Of note patient's started having URI symptoms and has COVID-19 - symptoms started 4 days ago - but patient is asymptomatic in this regard. Of note patient drinks 32 ounces water per day chronically, infrequently drinks alcohol. Did increase water intake to 64 ounces per day for last several days to help recover from GI illness. Today patient reports she is nauseous but other symptoms that prompted her to go to the ED have resolved. Feels "okay" overall. Review of Systems Review of Systems: All systems reviewed & are unremarkable except as noted in HPI & below Physical Exam Physical Exam: General: A&Ox3. NAD. Cooperative. HEENT: Atraumatic, normocephalic. Pulm: CTAB A&P. -wheezes, -rales, -rhonchi. Symmetrical chest rise. No increase work of breathing. No respiratory distress. Cardiac: RRR, -mrg. Radial pulses intact and symmetrical. Abdominal: soft, non-tender, non-distended, BS x 4 Skin: warm, dry, no rash Results & Data Results & Data Vital Signs (Past 12 Hours) Vital Signs Temp Pulse Pulse Resp BP BP BP 12/17/22 21:56 64 12/17/22 20:29 81 12/18/22 02:44 36.9 C 91 H 18 130/81 12/17/22 23:44 36.7 C 88 18 112/75 12/17/22 21:20 76 0 L 12/17/22 21:10 97 H 19 12/17/22 21:00 89 0 L 12/17/22 20:50 88 5 L 12/17/22 20:42 92 H 13 12/17/22 20:10 89 17 12/17/22 20:00 81 13 12/17/22 19:50 90 15 12/17/22 19:40 86 17 12/17/22 19:30 82 14 12/17/22 19:30 109/70 12/17/22 20:49 36.7 C 98 H 20 134/89 Pulse Ox O2 Del Method 12/17/22 21:56 12/17/22 20:29 12/18/22 02:44 98 Room Air 12/17/22 23:44 98 Room Air 12/17/22 21:20 12/17/22 21:10 12/17/22 21:00 12/17/22 20:50 12/17/22 20:42 12/17/22 20:10 12/17/22 20:00 12/17/22 19:50 12/17/22 19:40 99 12/17/22 19:30 97 12/17/22 19:30 12/17/22 20:49 96 Room Air Resident Activity Tracking Resident Involvement: Resident Care Provided Care Provided: Adult Hospital Medicine
[2022-12-18] MEDS ORDERED: ONDANSETRON INJ 2 MG/ML 2 ML VIAL IV STA (08:09)
[2022-12-18] MEDS ORDERED: ONDANSETRON INJ 2 MG/ML 2 ML VIAL ONE (08:11)
[2022-12-18] MEDS: POTASSIUM CHLORIDE / WTR 10 MEQ/100 ML PLCT IV SCH ×3 (08:15→10:23)
[2022-12-18] MEDS: MAGNESIUM SULFATE / D5W 1 GM/100 ML BAG IV SCH ×2 (08:16→10:25)
[2022-12-18] MEDS: ENOXAPARIN INJ 40 MG/0.4 ML SYR SQ SCH (08:26)
[2022-12-18] MEDS: ASPIRIN 81 MG ECTAB PO SCH (08:26)
[2022-12-18] MEDS ORDERED: ONDANSETRON INJ 2 MG/ML 2 ML VIAL IV PRN (08:37)
[2022-12-18] MEDS ORDERED: PROCHLORPERAZINE 5 MG in SYRINGE 4 ML IV ONE (09:45)
[2022-12-18 09:51] LABS: Calcium 7.9 mg/dl (8.6-10.3); Creatinine Clr Calc Pharmacy 107.1 ml/min; Est GFR (African American) 125.4 ml/min; Est GFR (Non-African American) 108.2 ml/min; Potassium 3.2 mmol/L (3.5-5.1)
[2022-12-18] MEDS ORDERED: SODIUM CHLORIDE 0.9% 1000ML 500 ML IV ONE (10:02)
--- NOTE | 2022-12-18 10:24 | Electrocardiogram Report ---
Test Reason : Blood Pressure : / mmHG Vent. Rate : 084 BPM Atrial Rate : 084 BPM P-R Int : 286 ms QRS Dur : 094 ms QT Int : 382 ms P-R-T Axes : 049 029 021 degrees QTc Int : 451 ms Sinus rhythm with 1st degree A-V block Possible Left atrial enlargement Abnormal ECG No previous ECGs available Confirmed by Bebeto Watt ([id number]) on 12/18/2022 10:24:31 AM Referred By: Confirmed By:Bebeto Watt
[2022-12-18] MEDS ORDERED: POTASSIUM CHLORIDE CRTAB 20 MEQ TABCR PO STA (10:35)
--- NOTE | 2022-12-18 10:41 | Electrocardiogram Report ---
Test Reason : Blood Pressure : / mmHG Vent. Rate : 073 BPM Atrial Rate : 073 BPM P-R Int : 296 ms QRS Dur : 080 ms QT Int : 402 ms P-R-T Axes : 058 050 048 degrees QTc Int : 442 ms Sinus rhythm with 1st degree A-V block Abnormal ECG When compared with ECG of 17-DEC-2022 15:14, (unconfirmed) No significant change was found Confirmed by Bebeto Watt ([id number]) on 12/18/2022 10:41:13 AM Referred By: REFERRED SELF Confirmed By:Bebeto Watt
[2022-12-18] MEDS: lisinopril 20 MG TAB PO SCH (11:40)
[2022-12-18 13:45] LABS: BUN Creatinine Ratio 8.5 (10-20); Creatinine Clr Calc Pharmacy 90.8 ml/min; Est GFR (African American) 118.8 ml/min; Est GFR (Non-African American) 102.5 ml/min; Potassium 3.8 mmol/L (3.5-5.1)
[2022-12-18] MEDS ORDERED: SODIUM CHLORIDE 1 GM TABLET PO ONE (13:50)
[2022-12-18 16:59] LABS: BUN Creatinine Ratio 8.7 (10-20); Calcium 7.8 mg/dl (8.6-10.3); Creatinine Clr Calc Pharmacy 116.5 ml/min; Est GFR (African American) 128.9 ml/min; Est GFR (Non-African American) 111.2 ml/min
[2022-12-18] MEDS ORDERED: STAT IV STA ×2 (17:04→17:18)
[2022-12-18] MEDS ORDERED: SODIUM CHLORIDE 1 GM TABLET PO STA (17:04)
[2022-12-18] MEDS ORDERED: SODIUM CHLORIDE 3 % 50 ML IV ONE (17:04)
[2022-12-18] MEDS ORDERED: SODIUM CHLORIDE 3 % 150 ML IV ONE (17:18)
--- NOTE | 2022-12-18 17:48 | Communication Note ---
Date of Service: December 18, 2022 This morning, patient's sodium had decreased from 126 to 118 after initiation of D5W gtt (1L) and Desmopressin clamp Q8H. D5W and desmopressin was discontinued this morning, and patient was given 1L NSS. Then patient was started on 500cc fluid restricted diet as well as given sodium chloride 1gm tablet. Despite this sodium decreased further from 118 to 114 (was 115 on admission yesterday afternoon). Patient reports that nausea and lightheadedness have started to return. VS are stable and WNL on room air. Patient's exam is stable and unremarkable - A+Ox4, heart RRR w/o m/r/g, lungs CTAB, no LE edema. Suspect multi-factorial hypotonic hyponatremia: GI sodium loss from recent vomiting/diarrhea, excess water intake to compensate for GI illness, and contribution from thiazide diuretic. Currently mildly symptomatic. - spoke with Nephrology (Dr. Kim) - appreciate recs: 200mL infusion of 3% hypertonic saline, with close monitoring of sodium (BMP q2h x2, followed by q4h checks) --> goal increase 8mEq over next 24 hours - continue to hold thiazide diuretic - seizure precautions in place Resident Activity Tracking Resident Involvement: Resident Care Provided Care Provided: Adult Hospital Medicine
[2022-12-18 19:04] LABS: BUN Creatinine Ratio 7.4 (10-20); Creatinine Clr Calc Pharmacy 99.2 ml/min; Est GFR (African American) 122.3 ml/min; Est GFR (Non-African American) 105.5 ml/min; Potassium 4.1 mmol/L (3.5-5.1)
[2022-12-18 22:35] LABS: BUN Creatinine Ratio 6.1 (10-20); Calcium 8.3 mg/dl (8.6-10.3); Creatinine Clr Calc Pharmacy 109.3 ml/min; Est GFR (African American) 126.2 ml/min; Est GFR (Non-African American) 108.9 ml/min
[2022-12-19 01:49] LABS: BUN Creatinine Ratio 5.9 (10-20); Calcium 8.4 mg/dl (8.6-10.3); Est GFR (African American) 124.6 ml/min; Est GFR (Non-African American) 107.5 ml/min; Potassium 3.9 mmol/L (3.5-5.1)
[2022-12-19] MEDS ORDERED: SODIUM CHLORIDE 3 % 50 ML IV ONE (01:52)
[2022-12-19] MEDS ORDERED: STAT IV STA (01:52)
--- NOTE | 2022-12-19 06:45 | Hospitalist Progress Note ---
Date of Service December 19, 2022 Assessment & Plan (1) Hyponatremia: Plan: 57 F with PMHx significant for HTN who was admitted to [facility] on 12/17 for hyponatremia and was also found to have COVID-19 (asymptomatic). Hyponatremia Hypotonic hyponatremia (initial serum osmolality 335 but down to 246 on re-check this morning), with urine sodium 47 and low urine osmolality of 220. Most likely hypovolemic hyponatremia due to dehydration in context of recent GI illness as well as chronically low fluid intake. Less likely SIADH given low urine osmolality, although patient does have asymptomatic COVID-19 and is on Lisinopril-HCTZ which both carry some risk of SIADH. Of note, chronic baseline sodium is unknown although patient reports no previous diagnosis of hyponatremia. -Na initially increased from 115 to 126 after 2L NSS boluses, and patient was thus started on Q8H Desmopressin as well as D5W x1L to correct free water deficit -Na then decreased from to 114 after DDAVP, D5W infusion. -Conferred with nephrology, who recommended 200 mL of 3% hypertonic saline, serial BMP monitoring w/ goal 8 mEq over next 24 hrs. -Now s/p 250 mL 3% hypertonic saline total since 12/18/22. Na now 123 from 114 in the last 12 hours. * Continue to monitor BMP Q4H Nausea -Likely due to hyponatremia, mildly symptomatic at this time. * PRN Zofran ordered Hypokalemia/Hypomagnesemia -Likely due to recent GI losses 2/2 recent illness. * Trend daily, replete as needed. HTN -Very mildly hypertensive at 145/95 this AM. * continue to hold Lisinopril-HCTZ due to possible contribution to hyponatremia * monitor BP COVID-19 Positive on admission, but asymptomatic. May be contributing to hyponatremia. * Isolation precautions FEN/GI: regular diet, fluid restriction 1L DVT Prophylaxis: Lovenox Code Status: full code Disposition: PCU (2) Hypokalemia: (3) Hypomagnesemia: (4) Hypertension: (5) COVID: Admission and Anticipated Discharge Date Admission Date: December 17, 2022 Supervising Physician Co-Signing Physician Notes I personally examined the patient and verified all anderson points of history and exam, discussed case, and agree with decision making with Dr Saavedra Feeling good. Understands the need to monitor sodium up a little bit further. Notes that she was on her hydrochlorothiazide for a while and her PCP follows her basic metabolic panel and she believes everything was finemaking it most likely that GI losses were the abrupt cause of her hyponatremia. Vitals noted, in general she is awake and alert pleasant no distress. HEENT normocephalic atraumatic mucous membranes moist. Breathing unlabored no accessory muscle use good effort. Skin shows no rashes no pallor or icterus. Neuro no focal deficits. Hyponatremiahypotonic due to GI lossesimproving. Continue current care for no w, as his sodium continues to improve, hopefully home tomorrow. Otherwise as above. Subjective Per nursing report, patient frequently urinated overnight (output-3.77L over last 24 h). However, on arrival, patient reveals no void since before 7 AM. She continues to report lightheadedness, which is improved since yesterday. She has had no trouble ambulating since yesterday. She would like to shower today if possible. Review of Systems Review of Systems: All systems reviewed & are unremarkable except as noted in HPI & below Physical Exam Physical Exam: General: No acute distress HEENT: PERRLA. Normal conjunctiva, anicteric sclera. Oropharynx normal. Respiratory: Normal respiratory effort, CTABL. Cardiovascular: RRR without murmurs, gallops, or rubs. No pedal edema. GI: Soft abdomen with normal bowel sounds heard on auscultation. Nontender x4 quadrants Neuro: Alert and oriented x3. Results & Data Results & Data Vital Signs (Past 12 Hours) Vital Signs Temp Pulse Pulse Resp BP Pulse Ox O2 Del Method 12/19/22 02:25 36.5 C 77 16 127/84 97 Room Air 12/18/22 22:11 78 12/18/22 23:03 36.8 C 74 18 112/70 97 Room Air 12/18/22 19:39 36.9 C 88 20 104/72 97 Room Air Resident Activity Tracking Resident Involvement: Resident Care Provided Care Provided: Adult Hospital Medicine
[2022-12-19 07:00] LABS: Basophils # (auto) 0.01 K/uL (0-0.2); Basophils % (auto) 0.3 %; Eosinophils # (auto) 0.02 K/uL (0-0.50); Eosinophils % (auto) 0.5 %; Hematocrit (blood only) 33.7 % (37.0-47.0); Hemoglobin 12.6 g/dl (12.0-16.0); Immature Granulocytes # (auto) 0.01 K/uL (0.01-0.20); Immature Granulocytes % (auto) 0.3 %; Lymphocytes # (auto) 1.41 K/uL (1.2-3.4); Lymphocytes % (auto) 35.3 %; Mean Corpuscular Hemoglobin 29.9 pg (25.0-34.0); Mean Corpuscular Hgb Conc 37.4 g/dL (32.0-36.0); Mean Platelet Volume 8.4 fL (9.4-12.4); Monocytes % (auto) 12.5 %; Neutrophils # (auto) 2.04 K/uL (1.40-6.50); Neutrophils % (auto) 51.1 %; Platelet Count 305 K/uL (130-400); RDW Coefficient of Variation 11.9 % (11.5-14.5); RDW Standard Deviation 34.5 fL (36.4-46.3); Red Blood Count 4.21 M/uL (4.20-5.40); White Blood Count 3.99 K/ul (4.8-10.8)
[2022-12-19 07:16] LABS: BUN Creatinine Ratio 6.3 (10-20); Calcium 8.5 mg/dl (8.6-10.3); Est GFR (African American) 127.1 ml/min; Est GFR (Non-African American) 109.7 ml/min; Magnesium 1.9 mg/dl (1.7-2.4); Potassium 3.8 mmol/L (3.5-5.1)
[2022-12-19] MEDS: ENOXAPARIN INJ 40 MG/0.4 ML SYR SQ SCH (07:56)
[2022-12-19] MEDS: ASPIRIN 81 MG ECTAB PO SCH (07:56)
[2022-12-19 09:24] LABS: BUN Creatinine Ratio 6.8 (10-20); Calcium 8.6 mg/dl (8.6-10.3); Creatinine Clr Calc Pharmacy 92.7 ml/min; Est GFR (African American) 118.8 ml/min; Est GFR (Non-African American) 102.5 ml/min; Potassium 3.6 mmol/L (3.5-5.1)
[2022-12-19] MEDS: lisinopril 20 MG TAB PO SCH (09:55)
[2022-12-19 13:49] LABS: BUN Creatinine Ratio 6.7 (10-20); Calcium 8.8 mg/dl (8.6-10.3); Creatinine Clr Calc Pharmacy 61.5 ml/min; Est GFR (Non-African American) 72.5 ml/min; Potassium 3.7 mmol/L (3.5-5.1)
--- NOTE | 2022-12-19 17:14 | Billing Data ---
Date of Service December 19, 2022 Coding Level of Care Code 74449 SUB INP/OBS CARE
[2022-12-19 17:28] LABS: BUN Creatinine Ratio 10.7 (10-20); Calcium 9.3 mg/dl (8.6-10.3); Creatinine Clr Calc Pharmacy 65.1 ml/min; Est GFR (Non-African American) 77.7 ml/min
[2022-12-19 22:41] LABS: BUN Creatinine Ratio 20.7 (10-20); Calcium 9.1 mg/dl (8.6-10.3); Creatinine Clr Calc Pharmacy 62.9 ml/min; Est GFR (African American) 86.3 ml/min; Est GFR (Non-African American) 74.5 ml/min; Potassium 4.1 mmol/L (3.5-5.1)
[2022-12-20 02:41] LABS: BUN Creatinine Ratio 18.8 (10-20); Calcium 9.2 mg/dl (8.6-10.3); Creatinine Clr Calc Pharmacy 68.4 ml/min; Est GFR (African American) 95.5 ml/min; Est GFR (Non-African American) 82.4 ml/min; Potassium 4.1 mmol/L (3.5-5.1)
[2022-12-20] MEDS: ACETAMINOPHEN 325 MG TAB PO PRN (05:48)
[2022-12-20 06:32] LABS: BUN Creatinine Ratio 19.2 (10-20); Calcium 8.8 mg/dl (8.6-10.3); Creatinine Clr Calc Pharmacy 69.3 ml/min; Est GFR (African American) 98.5 ml/min
--- NOTE | 2022-12-20 06:57 | Discharge Summary ---
Date of Service December 20, 2022 Admission HPI Per Admitting Provider Rose Bhat is a 57 year old female with hypertension who presents to the ER with generalized fatigue, lightheadedness and myalgias. She reports having a nausea, vomiting illness approximately 1 week ago. She recovered from this but has been drinking more water to keep well hydrated. She reports he had nasal congestion and cough on Monday and tested positive for COVID. Today she woke up lightheaded, fatigue and generalized malaise and just not feeling right around 3am this morning. She took a COVID test which was positive but felt something else must be going on so came to the ER for further evaluation. No fever, chills, respiraotry, gastrointestinal or urinary symptoms. In the ER Na level 115 mmol/L. She was given 2L NSS bolus and referred to medicine for admission and ongoing management of hyponatremia. Admission Exam Per Admitting Provider Constitutional: WD/WN, vitals as above Eyes: PERRL, conjunctivae normal, anicteric sclerae ENMT: external ear and nose normal, oropharynx normal Neck: trachea midline, no thyromegaly Respiratory: normal respiratory effort, lungs clear to auscultation Cardiovascular: RRR, no murmur, no edema Gastrointestinal (Abdomen): normal bowel sounds, soft, nontender, no hepatosplenomegaly Musculoskeletal: no cyanosis or clubbing, extremities motor strength 5/5 Skin: no rashes, warm and dry Neurologic: deep tendon reflexes 2+ bilaterally (knee), moves all extremities and awake; no focal motor deficits and not confused Speech / Cognition: normal speech Coordination: normal [id number] test Psychiatric: A+Ox3, euthymic affect Genitourinary: no CVA tenderness Principal Diagnosis Hyponatremia Discharge Exam General: No acute distress HEENT: PERRLA. Normal conjunctiva, anicteric sclera. Oropharynx normal. Respiratory: Normal respiratory effort, CTABL. Cardiovascular: RRR without murmurs, gallops, or rubs. No pedal edema. GI: Soft abdomen with normal bowel sounds heard on auscultation. Nontender x4 quadrants Neuro: Alert and oriented x3. Discharge Data Allergies Allergy/AdvReac Type Severity Reaction Status Date / Time No Known Allergies Allergy Unverified 12/17/22 15:56 Consultations 12/17/22 17:30 ED Decision to Admit Stat Hospital Course (1) Hyponatremia: 57 F with PMHx significant for HTN who was admitted to [facility] on 12/17 for hyponatr emia and was also found to have COVID-19 (asymptomatic). Hyponatremia Hypotonic hyponatremia (initial serum osmolality 335 but down to 246 on re-check this morning), with urine sodium 47 and low urine osmolality of 220. Most likely hypovolemic hyponatremia due to dehydration in context of recent GI illness as well as chronically low fluid intake. Less likely SIADH given low urine osmolality, although patient does have asymptomatic COVID-19 and is on Lisinopril-HCTZ which both carry some risk of SIADH. Of note, chronic baseline sodium is unknown although patient reports no previous diagnosis of hyponatremia. -Na initially increased from 115 to 126 after 2L NSS boluses, and patient was thus started on Q8H Desmopressin as well as D5W x1L to correct free water defi cit -Na then decreased from to 114 after DDAVP, D5W infusion. -Conferred with nephrology, who recommended 200 mL of 3% hypertonic saline, serial BMP monitoring w/ goal 8 mEq over next 24 hrs. -Now s/p 250 mL 3% hypertonic saline total since 12/18/22. Na now 123 from 114 in the last 12 hours. -Sodium improved to 130 on day of discharge. Also clinically improved. * Stopped lisinopril-HCTZ. Patient's blood pressures remained incredibly well controlled for entire duration of hospital stay, questioning the diagnosis of hypertension. Recommended restarting just lisinopril after 2 weeks. * Provided patient with BMP order to be checked in 2 weeks prior to reinitiation of lisinopril. Recommend additional BMP check 1 month after restarting lisinopril. Nausea -Likely due to hyponatremia, mildly symptomatic at this time. -Managed with PRN Zofran -Resolved. Hypokalemia/Hypomagnesemia -Likely due to recent GI losses 2/2 recent illness. -Trended daily, repleted as needed. HTN -Very mildly hypertensive at 145/95 this AM. -Held lisinopril-HCTZ for duration of hospital stay. -BPs were normotensive throughout, peaking at 137/87. BP in the 24 hours prior to discharge ranged in the 100s systolic over 60s to 70s diastolic. -Recommended stopping lisinopril-HCTZ, restarting lisinopril only after 2 weeks. COVID-19 Positive on admission, but asymptomatic. May be contributing to hyponatremia. Kept in negative pressure isolation room. (2) Hypokalemia: (3) Hypomagnesemia: (4) Hypertension: (5) COVID: Total Time Total Time Spent Total Time Spent (In Minutes): <30 Discharge Plan Discharge Items Patient Disposition: Home - Self-Care Reason For Visit: LIGHTHEADED, MUSCLE PAIN, DRY MOUTH Discharge Diagnosis: Severe hyponatremia Activity: Per Instructions section Non-emergency contact: Primary Care Provider Call non-emergency contact if: you have any medication questions and your symptoms worsen Follow-up/Referrals: Orville Dooley MD [Primary Care Provider] - 12/21/22 1:00 pm (Follow up scheduled on 12/21/2022 @ 1pm) Diet: Regular Ambulatory Orders: Basic Metabolic Panel (Routine) Timeframe: 2 Weeks Location: Determined by Patient Ordered By: Hoa Dorsey Attending Provider Instructions: Dear Rose, You were brought to the hospital for nausea, vomiting, and fatigue. We admitted you because you were found to have severe hyponatremia, or a lower than normal concentration of sodium in your blood. We treated you with intravenous fluids, salt tablets, and checked your metabolic labs regularly until your symptoms and sodium levels improved. We now feel that you improved sufficiently enough to be safely discharged home. Medications We made the following changes to your medications. Please follow these instructions, unless otherwise instructed to by your primary care physician. * We stopped your blood pressure medication, lisinopril-hydrochlorothiazide. We believe that it may have contributed your serum electrolyte concentrations. In addition, your blood pressure remained extremely well controlled despite not taking them for the entirety of your stay. Therefore, we recommend that you resume taking just lisinopril after 2 weeks. * You should also get blood work (a basic metabolic panel) to confirm that your electrolyte concentrations have returned to normal before restarting lisinopril. You should then get your BMP rechecked a month after restarting lisinopril. You should also follow-up with your primary care physician within 2 weeks of your discharge date. It is important that you do so, to keep apprised of your current health situation. It has been our pleasure to care for you here at [facility]. If you have any questions or concerns about your stay, feel free to reach out to us at [phone]. Pending Studies at Discharge: No Stand-Alone Forms: My [facility], Smoking Cessation Medications and DC Order Prescriptions: Continued multivitamin Tablet 1 tab PO DAILY aspirin 81 mg Tablet,Delayed Release (Dr/Ec) 81 mg PO DAILY Vaniqa 13.9 % cream See Rx Instructions .ROUTE .COMPLEX Rx Instructions: Apply topically to area as directed BID. Held lisinopril-hydrochlorothiazide 20-12.5 mg tablet 1 tab PO DAILY Hold Instructions: Resume on 01/03/23. Talk to your doctor about restarting only lisinopril after 2-weeks. Discharge Orders: Discharge Order (Routine); Ordered 12/20/22 Ordered By: Hoa Saavedra Admission Data Admit Date/Time: 12/17/22 18:28 Attending Provider: Enoc Ramirez Admit Provider: Iggy New Primary Care Provider: Orville Dooley Other Providers: Iggy New Other Interventions: Discharge Summary Assessment (RN) Last Done: 12/20/22 13:47 Supervising Physician Co-Signing Physician Notes I personally examined the patient and verified all anderson points of history and exam, discussed case, and agree with decision making with Dr Saavedra Feeling good. Feels up to going home. Vitals noted, in general she is awake and alert pleasant no distress. HEENT normocephalic atraumatic mucous membranes moist. Breathing unlabored no accessory muscle use good effort. Skin shows no rashes no pallor or icterus. Neuro no focal deficits. Hyponatremiahypotonic due to GI lossesimproving. Sodium not yet normal, but safe enough to go homeshe feels safe to go home. Outpatient basic metabolic panel in the next few days. Given that her blood pressures are pretty respectable, I doubt she is going to need to resume her hydrochlorothiazide, but if she does from a hypertension perspective, we discussed waiting until her sodi um is back to normal, resuming her hydrochlorothiazide, and then checking basic metabolic panel a few times in the following weeks after resumptionmaking it clear that I doubt that the thiazide was the culprit for hyponatremia, but seeing that it does happen from time to time, just wanting to be sure. Otherwise safe/stable for home Resident Activity Tracking Resident Involvement: Resident Care Provided Care Provided: Adult Hospital Medicine
[2022-12-20] MEDS: ENOXAPARIN INJ 40 MG/0.4 ML SYR SQ SCH (08:31)
[2022-12-20] MEDS: ASPIRIN 81 MG ECTAB PO SCH (08:31)
[2022-12-20 09:23] LABS: BUN Creatinine Ratio 18.3 (10-20); Calcium 8.9 mg/dl (8.6-10.3); Creatinine Clr Calc Pharmacy 65.9 ml/min; Est GFR (African American) 92.7 ml/min; Potassium 3.8 mmol/L (3.5-5.1)
--- NOTE | 2022-12-20 15:07 | Billing Data ---
Date of Service December 20, 2022 Coding Level of Care Code 75565 IN/OBS DISCH 30 MIN/LESS
== END 2022-12-20 13:49 | disposition home or self-care (01) | DRG 640 ==
LOC: ED 14:18 → 2E 18:28 → SUATTDRO 18:28 → 2E 20:15